=== PATIENT | female | born 1965 | race Caucasian/White ===

== ENCOUNTER 2016-11-25 13:36 | Day surgery (SDC) | payer BC ==
[~2016-11-25] VITALS: Ht 160 cm; Wt 104.8 kg
[2016-11-25] MEDS ORDERED: EFFEXOR XR75 MG/CAP PO (14:34)
[2016-11-25] MEDS ORDERED: SYNTHROID 0.0.025 MG PO (14:34)
[2016-11-25] MEDS ORDERED: TAMOXIFEN CITRA20 MG PO (14:36)
[2016-11-25 14:40] VITALS: BP 130/87; PULSE 76; TEMP 98.1
[2016-11-25 15:05] VITALS: BP 115/75; PULSE 84; TEMP 97.8
[2016-11-25 15:20] VITALS: BP 129/84; PULSE 73
[2016-11-25 15:35] VITALS: BP 132/85; PULSE 78
== END 2016-11-25 15:54 | disposition home or self-care (01) ==
LOC: SDCO 13:36
DX: Z86.010 Personal history of colon polyps (principal)
CPT/HCPCS: J2250; J2405; J3010; J7030